=== PATIENT | female | born 1960 | race Caucasian/White ===

== ENCOUNTER → 2020-02-12 10:52 | Outpatient (CLI) | payer BC, SELFPAY ==
--- NOTE | ~2020-02-12 | MM_ITS ---
EXAMINATION: MM scrn silver implant BI w lizy HISTORY: Screening mammogram TECHNIQUE: Craniocaudal and mediolateral oblique 3-D tomosynthesis images with implant displacement a nd synthetic 2-D images were generated. Craniocaudal and mediolateral oblique views of the breasts wi thout implant displacement were obtained using full field digital mammography. CAD analysis was submi tted and interpreted. COMPARISON: 11/30/2018, 11/24/2017, 09/28/2016 BREAST PARENCHYMAL COMPOSITION: There are scattered areas of fibroglandular density. FINDINGS: There is no evidence of suspicious mass, calcification, or architectural distortion to sugg est malignancy in either breast. There has been no suspicious interval change. IMPRESSION: 1. No mammographic evidence of malignancy. 2. Recommend routine screening mammography in one year. BI-RADS Category 1: Negative Reviewed, dictated and finalized at location A.
== END ==
PROVIDERS: Visit Provider Nurse Practitioner
DX: Z12.31 Encounter for screening mammogram for malignant neoplasm of breast (principal)
CPT/HCPCS: 77063; 77067

== ENCOUNTER → 2021-02-15 10:19 | Outpatient (CLI) | payer BC, SELFPAY ==
--- NOTE | ~2021-02-15 | MM_ITS ---
EXAMINATION: MM scrn silver implant BI w lizy HISTORY: Screening mammogram TECHNIQUE: Craniocaudal and mediolateral oblique 3-D tomosynthesis images with implant displacement a nd synthetic 2-D images were generated. Craniocaudal and mediolateral oblique views of the breasts wi thout implant displacement were obtained using full field digital mammography. CAD analysis was submi tted and interpreted. COMPARISON: 02/12/2020, 11/30/2018, 11/24/2017 BREAST PARENCHYMAL COMPOSITION: There are scattered areas of fibroglandular density. FINDINGS: There is no evidence of suspicious mass, calcification, or architectural distortion to sugg est malignancy in either breast. There has been no suspicious interval change. IMPRESSION: 1. No mammographic evidence of malignancy. 2. Recommend routine screening mammography in one year. BI-RADS Category 1: Negative Reviewed, dictated and finalized at location A.
== END ==
PROVIDERS: PCP Physician Assistant; Visit Provider Nurse Practitioner
DX: Z12.31 Encounter for screening mammogram for malignant neoplasm of breast (principal)
CPT/HCPCS: 77063; 77067

== ENCOUNTER → 2021-12-14 16:09 | Outpatient (CLI) | payer BC, SELFPAY ==
--- NOTE | ~2021-12-14 | MR_ITS ---
EXAMINATION: MR ankle RT wo con DATE: 12/14/2021 17:04 INDICATION: Plantar fascial fibromatosis TECHNIQUE: Magnetic resonance imaging (MRI) of the right ankle was performed without intravenous cont rast. Sequences included sagittal, coronal, and axial proton-density weighted fast spin echo without and with fat saturation. COMPARISON: None. FINDINGS: Medial ankle ligaments: Deep and superficial deltoid ligaments as well as the spring ligament are normal. Lateral ankle ligaments: The anterior and posterior inferior tibiofibular ligaments are normal. The anterior talofibular, calc aneofibular and posterior talofibular ligaments are normal. Tendons: Achilles tendon is normal. The peroneus longus and brevis tendons are normal. There is localized mild synovitis along the peroneus longus tendon at the level of the peroneal groove at the plantar aspect of the cuboid where there is associated mild marrow edema. The tibialis anterior and extensor halluc is longus and extensor digitorum longus tendons are normal. The tibialis posterior, flexor digitorum longus and flexor hallucis longus tendons are normal. Plantar fascia: Small plantar calcaneal spur. There is thickening and increased signal of the proximal plantar aponeu rosis with mild surrounding soft tissue edema and mild marrow edema at the calcaneal origin consisten t with acute on chronic plantar fasciitis. The more distal plantar aponeurosis appears normal with no regions of cortical thickening to suggest fibromatosis. Bones/other: Bone alignment is normal. No fracture or pathologic marrow replacing process. Joint spaces are relat ively preserved. Fluid: Physiologic amount of fluid in the joint spaces. No other abnormal fluid collections. IMPRESSION: 1. Moderate acute on chronic plantar fasciitis. 2. Cuboid marge lesion with marrow edema at the peroneal groove at the plantar aspect of the cuboid with associated focal tenosynovitis along the normal peroneus longus tendon. Both this and the planta r fasciitis could be related to overuse however also raises the possibility of an inflammatory enthes itis/arthritis such as in the setting of rheumatoid arthritis or spondyloarthritis. Reviewed, dictated and finalized at location A. IMPRESSION: 1. Moderate acute on chronic plantar fasciitis. 2. Cuboid marge lesion with marrow edema at the peroneal groove at the plantar aspect of the cuboid with associated focal tenosynovitis along the normal sobeida neus longus tendon. Both this and the plantar fasciitis could be related to ove ruse however also raises the possibility of an inflammatory enthesitis/arthriti s such as in the setting of rheumatoid arthritis or spondyloarthritis.
== END ==
PROVIDERS: PCP Physician Assistant; Visit Provider Podiatrist Foot & Ankle Surgery
DX: M72.2 Plantar fascial fibromatosis (principal); M76.61 Achilles tendinitis, right leg
CPT/HCPCS: 73721

== ENCOUNTER → 2022-07-25 10:21 | Outpatient (CLI) | payer BC, SELFPAY ==
--- NOTE | ~2022-07-25 | MM_ITS ---
EXAMINATION: MM screening silver BI w liyz HISTORY: Screening mammogram TECHNIQUE: Craniocaudal and mediolateral oblique 3-D tomosynthesis images were obtained and synthetic 2-D images were generated. CAD analysis was submitted and interpreted. COMPARISON: 02/2021, 02/12/2020, 11/30/2018 bilateral implant screening mammogram examinations BREAST PARENCHYMAL COMPOSITION: There are scattered areas of fibroglandular density. FINDINGS: Interval removal of bilateral breast implants since last mammogram of 02/2021. There is no evidence of suspicious mass, calcification, or architectural distortion to suggest malignancy in eit her breast. There has been no suspicious interval change. IMPRESSION: 1. No mammographic evidence of malignancy. 2. Recommend routine screening mammography in one year. BI-RADS Category 1: Negative Reviewed, dictated and finalized at location A.
== END ==
PROVIDERS: PCP Physician Assistant; Visit Provider Nurse Practitioner
DX: Z12.31 Encounter for screening mammogram for malignant neoplasm of breast (principal)
CPT/HCPCS: 77063; 77067

== ENCOUNTER → 2023-01-02 11:00 | Outpatient (CLI) | payer BC, SELFPAY ==
--- NOTE | ~2023-01-02 | DEXA_ITS ---
Bone Density Report Name: MALATHI JACOBSON Age: 62 Sex: Female Ethnicity: White Date of : 1960 Indication: postmenopausal; screening for osteoporosis; rheumatoid arthritis; Referring Provider: [place], Gissell Study: Bone densitometry was performed. Exam Date: January 02, 2023 Accession number: [id number] Bone Density: Region BMD T-score Z-score Classification AP Spine (L1-L4) 1.063 0.1 1.7 Normal Femoral Neck (Left) 0.642 -1.9 -0.5 Osteopenia Total Hip (Left) 0.847 -0.8 0.3 Normal Femoral Neck (Right) 0.716 -1.2 0.2 Osteopenia Total Hip (Right) 0.857 -0.7 0.4 Normal Total Hip Mean 0.852 -0.8 0.4 Normal World Health Organization criteria for BMD impression classify patients as: Normal (T-score at or above -1.0), Osteopenia (T-score between -1.0 and -2.5), or Osteoporosis (T-score at or below -2.5). 10-year Fracture Risk(1): Major Osteoporotic Fracture 12% Hip Fracture 1.6% Reported Risk Factors: [place] (), Neck BMD=0.642, BMI=27.0, rheumatoid arthritis (1) FRAX(R) Version 3.08. Fracture probability calculated for an untreated patient. Fracture probability may be lower if the patient has received treatment. Clinical Information Provided by Patient: Has rheumatoid arthritis Has used the following medications: Vitamin D Patient maximum height was 64.75 Menopause Age: 55 Does not regularly consume dairy products Drinks caffeinated beverages Onset of menses at age 16 Number of children 2 Impression: The patient has low bone mass, based on the Left Femoral Neck T-score. The patient has an estimated ten-year risk of hip fracture of 1.6% and an estimated ten-year risk of major fracture of 12%, based on the WHO FRAX algorithm. Discussion: BONE DENSITY IS LOW AT ONE OR MORE SKELETAL SITES. This patient's lowest T-score is low at one or more skeletal sites. It meets the World Health Organization's (WHO) criteria for ?low bone mass? (T-score between -1.0 and -2.5). The patient's 10-year risk of fracture as calculated by FRAX is less than the threshold where pharmacological therapy is recommended by the National Osteoporosis Foundation (NOF). However, all treatment decisions require clinical judgment and consideration of individual patient factors, including patient preferences, comorbidities, previous drug use, risk factors not captured in the FRAX model (e.g., frailty, falls, vitamin D deficiency, increased bone turnover, interval significant decline in bone density) and possible under or overestimation of fracture risk by FRAX. The patient should follow a healthful lifestyle (good nutrition with adequate calcium and vitamin D, and appropriate weight-bearing exercise). Follow-Up: Consider repeating this study in 2 to 3 years to reassess this patient's status, or sooner if there
== END ==
PROVIDERS: PCP Physician Assistant; Visit Provider Nurse Practitioner
DX: Z13.820 Encounter for screening for osteoporosis (principal); Z78.0 Asymptomatic menopausal state; M85.852 Other specified disorders of bone density and structure, left thigh; M85.851 Other specified disorders of bone density and structure, right thigh
CPT/HCPCS: 77080

== ENCOUNTER 2023-06-23 20:14 | Emergency (ER) | payer BC, SELFPAY ==
[2023-06-23 20:58] VITALS: BP 121/59; PULSE 84; RESP 16; TEMP 36.9; O2SAT 100
--- NOTE | 2023-06-23 21:02 | ECG_ITS ---
Measurements Intervals [place] Rate: 72 P: 25 NV: 154 QRS: 20 QRSD: 82 T: 34 QT: 392 QTc: 429 Interpretive Statements SINUS RHYTHM NORMAL ECG NO PREVIOUS ECG AVAILABLE FOR COMPARISON Electronically Signed On 06-24-2023 8:03:51 [employer] MIXING MACHINE OPERATOR by Dannie Escamilla M.D.
[2023-06-23 21:35] LABS: Basophils Percent Auto 0.4 % (0.2-1.2); Eosinophils Absolute Auto 0.1 K/mm3 (0-0.3); Eosinophils Percent Auto 0.7 % (0-4.4); Hematocrit 40.2 % (37.0-47.0); Hemoglobin 13.3 g/dL (12.0-15.0); Immature Granulocyte Absolute 0.03 K/mm3 (0.00-0.031); Immature Granulocyte Percent A 0.4 % (0-0.5); Lymphocytes Absolute Auto 1.19 K/mm3 (0.9-3.2); Mean Corpuscular HGB Conc 33.1 g/dl (32-36); Mean Corpuscular Hemoglobin 30.4 pg (26-34); Mean Platelet Volume 9.7 fl (7.4-10.4); Monocytes Absolute Auto 0.5 K/mm3 (0.1-0.6); Monocytes Percent Auto 6.6 % (2.6-8.5); Neutrophils Absolute Auto 5.6 K/mm3 (1.3-6.7); Neutrophils Percent Auto 75.9 % (45.5-73.1); Platelet Count Result 233 k/mm3 (150-375); Red Blood Count 4.37 M/mm3 (4.2-5.4); Red Cell Distribution Width 12.9 % (11.5-14.5); White Blood Count 7.4 K/mm3 (4.5-10.0)
[2023-06-23 22:21] LABS: Alanine Aminotransferase 55 U/L (6-35); Albumin Level 4.5 g/dL (3.5-5.1); Alkaline Phosphatase 76 U/L (38-126); Anion Gap 8 mmol/L (8-16); Aspartate Amino Transferase 42 U/L (14-36); Bilirubin,Total 0.5 mg/dL (0.2-1.3); Blood Urea Nitrogen 25 mg/dL (7-17); Calcium 9.5 mg/dL (8.4-10.2); Carbon Dioxide 27 mmol/L (22-30); Chloride 102 mmol/L (98-107); Estimated CRCL calculation 45 ml/min; Estimated Glomerular Filt Rate 56; Glucose 118 mg/dL (65-110); Potassium 3.7 mmol/L (3.4-5.0); Sodium 137 mmol/L (137-145)
== END 2023-06-23 22:53 | disposition left against medical advice (07) ==
PROVIDERS: Emergency Provider Emergency Medicine; PCP Physician Assistant
DX: R55 Syncope and collapse (principal)
CPT/HCPCS: 36415; 80053; 85025; 93005; 99199

== ENCOUNTER 2023-07-28 10:04 | Outpatient (CLI) | payer BC, SELFPAY ==
--- NOTE | ~2023-07-28 | MM_ITS ---
EXAMINATION: MM screening silver BI w lizy HISTORY: Screening mammogram TECHNIQUE: Craniocaudal and mediolateral oblique 3-D tomosynthesis images were obtained and synthetic 2-D images were generated. CAD analysis was submitted and interpreted. COMPARISON: 07/25/2022 bilateral screening mammogram 02/2021 bilateral implant screening mammogram BREAST PARENCHYMAL COMPOSITION: The breasts are heterogeneously dense, which may obscure small masses . FINDINGS: Asymmetric 2 mm mass is noted in the posterior lower outer left breast. Diagnostic left silver mogram is recommended, with ultrasound if required. Otherwise there is no evidence of suspicious mass, calcification, or architectural distortion to sugg est malignancy in either breast. There has been no other suspicious interval change. IMPRESSION: 1. Asymmetric 2 mm mass in posterior lower outer left breast 2. Diagnostic left mammogram is recommended, with ultrasound if required BI-RADS Category 0: Incomplete: Needs additional imaging evaluation. Reviewed, dictated and finalized at location A.
== END 2023-07-28 10:05 ==
LOC: MICIMG 10:06
PROVIDERS: PCP Physician Assistant; Visit Provider Nurse Practitioner
DX: Z12.31 Encounter for screening mammogram for malignant neoplasm of breast (principal); R92.8 Other abnormal and inconclusive findings on diagnostic imaging of breast
CPT/HCPCS: 77063; 77067

== ENCOUNTER 2023-08-28 14:59 | Outpatient (CLI) | payer BC, SELFPAY ==
--- NOTE | ~2023-08-28 | MR_ITS ---
EXAMINATION: MR brain/brain stem wo/w con DATE: 08/28/2023 15:39 INDICATION: Syncope. TECHNIQUE: Magnetic resonance imaging (MRI) of the brain and brainstem was performed without and with 14 mL MultiHance intravenous contrast. COMPARISON: None. FINDINGS: There is no intracranial hemorrhage, acute infarction, or abnormal intracranial mass lesion . There are scattered areas of nonspecific increased T2-weighted signal intensity in the cerebral whi te matter, which is within normal limits for the patient's age. The ventricles are normal in size. Th e paranasal sinuses are clear. The orbits are normal. The mastoid air cells are normal. IMPRESSION: 1. Normal brain. Reviewed, dictated and finalized at location E. IMPRESSION: 1. Normal brain.
== END 2023-08-28 15:00 ==
LOC: MICIMG 15:00
PROVIDERS: PCP Physician Assistant; Visit Provider Physician Assistant
DX: R55 Syncope and collapse (principal)
CPT/HCPCS: 70553

== ENCOUNTER 2023-09-06 09:10 | Outpatient (CLI) | payer BC, SELFPAY ==
--- NOTE | ~2023-09-06 | US_ITS ---
EXAMINATION: US carotid duplex BI DATE: 09/06/2023 09:49 INDICATION: Syncope TECHNIQUE: Grayscale, color Doppler, and pulsed Doppler images of the cervical carotid arteries were obtained. The degree of vessel stenosis is placed in one of the following categories: normal, <50%, 5 0-69%, >=70% but less than near-occlusion, near-occlusion, or total occlusion. Note that percent sten osis relative to normal distal artery lumen diameter is indirectly measured from velocity measurement s as described by Martinez, et al. Radiology 2003; 229:340-346. Notes: Normal: Peak systolic velocity <125 centimeters/sec and no plaque <50%. Peak systolic velocity <125 ( EDV <40; ICA/CCA PSV ratio <2.0; used these factors only a tandem lesions or low cardiac output or co ntralateral disease) 50-69 %: PSV 125-230 (EDV 40-100; ratio 2-4) >= 70% but less than near occlusion: PSV greater than 230 (EDV > 100; ratio> 4.0) Near Occlusion: PSV that is variable; markedly narrowed lumen Occlusion: Absent flow on color/spectral Doppler and no lumen on arita scale. COMPARISON: None. FINDINGS: RIGHT: The right common carotid artery (CCA) peak systolic velocity (PSV) is 71 cm/s. The right internal car otid artery (ICA) PSV is 66 cm/s. The right ICA end-diastolic velocity (EDV) is 28 cm/s. The right IC A/CCA PSV ratio is 0.9. The external carotid artery (ECA) PSV is 40 cm/s. There is antegrade flow in the right vertebral artery. LEFT: The left CCA PSV is 55 cm/s. The left ICA PSV is 76 cm/s. The left ICA EDV is 37 cm/s. The left ICA/C CA PSV ratio is 1.4. The ECA PSV is 69 cm/s. There is antegrade flow in the left vertebral artery. IMPRESSION: 1. Less than 50% stenosis in the right internal carotid artery by sonographic criteria. 2. Less than 50% stenosis in the left internal carotid artery by sonographic criteria. Reviewed, dictated and finalized at location B. IMPRESSION: 1. Less than 50% stenosis in the right internal carotid artery by sonographic roger orourke. 2. Less than 50% stenosis in the left internal carotid artery by sonographic justin tyler.
== END 2023-09-06 09:11 ==
LOC: MICIMG 09:17
PROVIDERS: PCP Physician Assistant; Visit Provider Physician Assistant
DX: I65.23 Occlusion and stenosis of bilateral carotid arteries (principal); R55 Syncope and collapse
CPT/HCPCS: 93880

== ENCOUNTER 2023-09-06 09:23 | Outpatient (CLI) | payer BC, SELFPAY ==
--- NOTE | ~2023-09-06 | MM_ITS ---
EXAMINATION: MM diagnostic silver LT w lizy HISTORY: Asymmetric 2 mm mass in posterior lower outer left breast reported on 07/28/2023 screening ma mmogram TECHNIQUE: Additional 3-D tomosynthesis images of the left breast were performed and synthetic 2-D im ages were generated. CAD analysis was submitted and interpreted. COMPARISON: 07/28/2023 bilateral screening mammogram FINDINGS: The 2 mm soft tissue opacity noted posteriorly in the lower left breast on screening MLO vi ew of 07/28/2023 is not detected on these supplemental additional views. IMPRESSION: 1. No mammographic evidence of malignancy 2. Routine annual mammographic screening is recommended BI-RADS Category 1: Negative Reviewed, dictated and finalized at location A.
== END 2023-09-06 09:24 ==
LOC: MICIMG 09:24
PROVIDERS: PCP Obstetrics & Gynecology Gynecology; Visit Provider Obstetrics & Gynecology Gynecology
DX: R92.8 Other abnormal and inconclusive findings on diagnostic imaging of breast (principal)
CPT/HCPCS: 77061; 77065; G0279

== ENCOUNTER 2023-09-08 06:37 | Outpatient (CLI) | payer BC, SELFPAY ==
--- NOTE | 2023-09-08 | ECHO_ITS ---
Patient Info Name: Supriya Lan Age: 63 years : 1960 Gender: Female Ht: 64 in Wt: 148 lbs BSA: 1.75 m2 HR: 54 bpm BP: 111 / 75 mmHg Technical Quality: Fair Exam Date: 09/08/2023 7:32 AM Exam Location: Echo Lab Patient Status: Outpatient Admit Date: 09/08/2023 Staff Ordering Physician: JaisonEliana PA-C Meat Press Operator: Pj Francis RDCS Attending Provider: MedardoEliana PA-C Exam Type: CA echo doppler color flow Study Info Indications R55 - Syncope and collapse Complete two-dimensional, color flow and Doppler transthoracic echocardiogram is performed. Summary 1. Complete two-dimensional, color flow and Doppler transthoracic echocardiogram is performed. 2. Left ventricular chamber dimension is normal. 3. Left ventricular systolic function is normal, estimated at 60-65%. 4. The left ventricular diastolic function is abnormal. 5. E/e' 10 is mildly elevated. 6. There is trace mitral valve regurgitation. 7. There is trace tricuspid valve regurgitation. 8. No pulmonary hypertension, estimated pulmonary arterial systolic pressure is 25 mmHg. 9. There is trace pulmonic regurgitation. Left Ventricle E/e' 10 is mildly elevated. Left ventricular chamber dimension is normal. Left ventricular systolic function is normal, estimated at 60-65%. The left ventricular diastolic function is abnormal. Right Ventricle Right ventricular chamber dimension is normal. Right ventricular systolic function is normal. Left Atria Left atrial chamber dimension is normal. Right Atria Right atrial chamber dimension is normal. Aortic Valve The aortic valve is trileaflet. There is no aortic valve stenosis. There is no aortic valve regurgitation. Pulmonic Valve There is trace pulmonic regurgitation. Mitral Valve There is no mitral valve stenosis. There is trace mitral valve regurgitation. Tricuspid Valve There is trace tricuspid valve regurgitation. No pulmonary hypertension, estimated pulmonary arterial systolic pressure is 25 mmHg. Pericardium/Pleural There is no pericardial effusion. Inferior Vena Cava Normal inferior vena cava with >50% collapse upon inspiration consistent with normal right atrial pressure, 5 mmHg. Aorta The aortic root size at the sinus of Valsalva is normal. Left Ventricular Outflow Tract Name Value Normal LVOT 2D LVOT Diameter 1.9 cm LVOT Doppler LVOT Peak Gradient 5 mmHg LVOT Mean Gradient 2 mmHg LVOT VTI 25 cm LVOT VTI/AV VTI Ratio 0.9 LVOT Stroke Volume 68 ml LVOT CO 3.9 l/min LVOT CI 2.2 l/min/m2 Pulmonic Valve Name Value Normal RVOT Doppler RVOT Peak Gradient 2 mmHg PV Doppler PV Peak Gradie
--- NOTE | 2023-09-09 17:07 | WPDNEUROLOGY ---
Neurology EEG Report General Information Date of Study: 09/08/23 TEST Electroencephalogram DIAGNOSIS syncope and collapse CONDITION OF RECORDING neurology lab EEG NUMBER [id number] CLINICAL HISTORY The patient is a 66 years old with history of episodes of loss of consciousness. List of current medications are not available. EEG DESCRIPTION During wakefulness the background activity consists of posterior dominant alpha rhythm at approximately 9 hertz the patient 1535 microvolts which appears more delete formed and reactive to eye opening. Anteriorly low amplitude mixed frequency activity was seen. During drowsiness attenuation of background activity is seen. Patient did not progress to stage 2 sleep. Hyperventilation was not performed. Photic session was performed during which no significant abnormal background changes were seen. No appreciable driving response was noted. IMPRESSION This is a normal EEG obtained during awake and drowsy states.
--- NOTE | 2023-09-09 17:15 | WPDNEUROLOGY ---
Neurology EEG Report General Information Date of Study: 09/08/23 TEST Electroencephalogram DIAGNOSIS cerebral infarction CONDITION OF RECORDING neurodiagnostic lab EEG NUMBER [id number] CLINICAL HISTORY the patient is 57 years old with history of an episode in which the patient unable to walk and also had slurring of speech for 2 days which subsequently cleared up. This happened a few years ago. EEG DESCRIPTION At the beginning of the recording the patient noted to be drowsy. The background activity consists of predominant theta activity at 7 hertz the amplitude of 15-30 microvolts. The patient appears to be drowsy through most of the recording. hyperventilation was not performed. Photic stimulation was for which no significant abnormal background changes were seen. Stage 2 sleep was recorded during which sleep spindles. During periods of brief self arousal the posterior down rhythm reaches in the range of approximately 8 hertz with remains poorly defined IMPRESSION This is an essentially normal EEG obtained during drowsy and sleep states. No focal or paroxysmal abnormalities were noted.
== END 2023-09-08 06:38 | disposition home or self-care (01) ==
PROVIDERS: PCP Physician Assistant; Visit Provider Physician Assistant
DX: R55 Syncope and collapse (principal)
CPT/HCPCS: 93306; 95816

== ENCOUNTER 2024-09-06 09:19 | Outpatient (CLI) | payer BC, SELFPAY ==
--- NOTE | ~2024-09-06 | XR_ITS ---
Right wrist Technique: PA and lateral views were obtained. Clinical History: Rheumatoid arthritis Findings: No acute fracture or dislocation is seen. Osseous alignment is anatomic. Joint spaces are p reserved. Soft tissues are unremarkable. Impression: Unremarkable right wrist radiographs. Reviewed, dictated and finalized at location M. Impression: Unremarkable right wrist radiographs.
--- NOTE | ~2024-09-06 | XR_ITS ---
AP and oblique views of the SI joints CLINICAL HISTORY: Rheumatoid arthritis FINDINGS: There is mild degenerative change of the SI joints. No erosive change identified. No sclero sis. Bilateral hip joints are intact. Soft tissues are unremarkable. 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 No erosive arthropathy evident. Reviewed, dictated and finalized at location .
--- NOTE | ~2024-09-06 | XR_ITS ---
Right foot Technique: AP, oblique, and lateral views were obtained. Clinical History: Rheumatoid arthritis Findings: No acute fracture or dislocation is seen. Osseous alignment is anatomic. Joint spaces are p reserved without erosive or degenerative change. Soft tissues are unremarkable. Impression: Unremarkable right foot radiographs. Reviewed, dictated and finalized at [facility]. Impression: Unremarkable right foot radiographs.
--- NOTE | ~2024-09-06 | XR_ITS ---
Lumbosacral Spine: AP and lateral views Clinical History: Pain Findings: Mild levoscoliosis noted. The vertebral bodies and posterior elements are intact. The int ervertebral disc spaces are preserved. There is severe facet arthropathy from L3 through S1. The sacr oiliac joints are normally outlined. Impression: Facet arthropathy at the lower lumbar spine, as above. Reviewed, dictated and finalized at location . Impression: Facet arthropathy at the lower lumbar spine, as above.
--- NOTE | ~2024-09-06 | XR_ITS ---
Right Hand Technique: PA and lateral views were obtained. Clinical History: Rheumatoid arthritis Findings: No acute fracture or dislocation is seen. Osseous alignment is anatomic. Joint spaces are p reserved. Soft tissues are unremarkable. Impression: Unremarkable right hand. Reviewed, dictated and finalized at location M. Impression: Unremarkable right hand.
--- NOTE | ~2024-09-06 | XR_ITS ---
Left wrist Technique: PA and lateral views were obtained. Clinical History: Rheumatoid arthritis Findings: No acute fracture or dislocation is seen. Osseous alignment is anatomic. Joint spaces are p reserved. Soft tissues are unremarkable. Impression: Unremarkable left wrist radiographs. Reviewed, dictated and finalized at location M. Impression: Unremarkable left wrist radiographs.
--- NOTE | ~2024-09-06 | XR_ITS ---
Left Hand Technique: PA and lateral views were obtained. Clinical History: Rheumatoid arthritis Findings: No acute fracture or dislocation is seen. Osseous alignment is anatomic. Joint spaces are p reserved. Soft tissues are unremarkable. Impression: Unremarkable left hand. Reviewed, dictated and finalized at location M. Impression: Unremarkable left hand.
--- NOTE | ~2024-09-06 | XR_ITS ---
Left ankle Technique: AP and lateral views were obtained. Clinical History: Rheumatoid arthritis Findings: No acute fracture or dislocation is seen. Osseous alignment is anatomic. Ankle mortise and other visualized joint spaces are preserved. Soft tissues are otherwise unremarkable. Impression: Unremarkable left ankle. Reviewed, dictated and finalized at location . Impression: Unremarkable left ankle.
--- NOTE | ~2024-09-06 | XR_ITS ---
Right ankle Technique: AP and lateral views were obtained. Clinical History: Rheumatoid arthritis Findings: No acute fracture or dislocation is seen. Osseous alignment is anatomic. Ankle mortise and other visualized joint spaces are preserved. Soft tissues are otherwise unremarkable. Impression: Unremarkable right ankle. Reviewed, dictated and finalized at location . Impression: Unremarkable right ankle.
--- NOTE | ~2024-09-06 | XR_ITS ---
Left foot Technique: AP, oblique, and lateral views were obtained. Clinical History: Rheumatoid arthritis Findings: No acute fracture or dislocation is seen. Osseous alignment is anatomic. Joint spaces are p reserved without erosive or degenerative change. Soft tissues are unremarkable. Impression: Unremarkable left foot radiographs. Reviewed, dictated and finalized at [facility]. Impression: Unremarkable left foot radiographs.
== END 2024-09-06 09:20 | disposition home or self-care (01) ==
LOC: MICIMG 09:22
PROVIDERS: PCP Physician Assistant; Visit Provider Nurse Practitioner Family
DX: M54.9 Dorsalgia, unspecified (principal); R53.81 Other malaise; M25.50 Pain in unspecified joint; M79.10 Myalgia, unspecified site; M06.09 Rheumatoid arthritis without rheumatoid factor, multiple sites; M53.3 Sacrococcygeal disorders, not elsewhere classified
CPT/HCPCS: 72100; 72202; 73100; 73120; 73600; 73630

== ENCOUNTER 2024-10-25 13:38 | Outpatient (CLI) | payer BC, SELFPAY ==
--- NOTE | ~2024-10-25 | MR_ITS ---
MRI of the pelvis CLINICAL HISTORY: Chronic SI joint pain TECHNIQUE: Sagittal proton-density fat-sat images, coronal T1-weighted, T2-weighted, and T2 fat-sat i mages, and axial T1-weighted and T2 fat-sat images were performed. Following intravenous administrati on of 14 cc MultiHance gadolinium, T1-weighted fat-sat imaging was performed in the axial and coronal planes. FINDINGS: No fracture or dislocation seen. SI joints are intact. No bone marrow edema or erosive arth ropathy evident. No joint effusion. No degenerative change evident. Visualized musculature about the sacrum and visualized pelvis is unremarkable. No muscle atrophy or e nati identified. No peripheral soft tissue mass or fluid collection seen. Bilateral ovarian cysts are noted, partially imaged, measuring 4.0 cm the left ovary, and 2.1 cm on t he right ovary. IMPRESSION: No significant abnormality of the SI joints/sacrum. 4.0 cm left ovarian cyst, and 2.1 cm right ovarian cyst. Reviewed, dictated and finalized at [facility].
== END 2024-10-25 13:39 | disposition home or self-care (01) ==
LOC: MICIMG 13:39
PROVIDERS: PCP Physician Assistant; Visit Provider Nurse Practitioner Family
DX: M53.3 Sacrococcygeal disorders, not elsewhere classified (principal); M06.09 Rheumatoid arthritis without rheumatoid factor, multiple sites; N83.201 Unspecified ovarian cyst, right side; N83.202 Unspecified ovarian cyst, left side
CPT/HCPCS: 72197

== ENCOUNTER 2024-11-18 11:13 | Outpatient (CLI) | payer BC, SELFPAY ==
--- NOTE | ~2024-11-18 | US_ITS ---
EXAMINATION: US pelvic complete INDICATION: Ovarian cysts. Comparison:MRI of the pelvis dated 10/25/2024 TECHNIQUE: Multiple transabdominal and endovaginal sonographic images of the pelvis performed. FINDINGS: The uterus measures 6 x 2.7 x 4.2 cm. There is a small fibroid posteriorly measuring 2.1 cm . The endometrial complex measures 2 mm. The right ovary measures 2.9 x 2.7 x 2.4 cm and the left ovary measures 4.9 x 5.4 x 4 cm. There are b ilateral ovarian cyst measuring up to 2.9 cm on the right hand 4.7 cm on the left. There are small fo llicles in each ovary. Normal doppler signal in both ovaries. There is no free fluid in the pelvis. There are no abnormal masses seen on either side. IMPRESSION: 1. Simple bilateral ovarian cysts, largest in the left ovary measuring 4.7 cm. 2: Small posterior uterine fibroid measuring 2.1 cm. Reviewed, dictated and finalized at location A.
== END 2024-11-18 11:14 | disposition home or self-care (01) ==
LOC: MICIMG 11:15
PROVIDERS: PCP Physician Assistant; Visit Provider Nurse Practitioner
DX: N83.201 Unspecified ovarian cyst, right side (principal); N83.202 Unspecified ovarian cyst, left side; D25.9 Leiomyoma of uterus, unspecified
CPT/HCPCS: 76856

== ENCOUNTER 2024-11-28 15:33 | Outpatient (CLI) | payer BC, SELFPAY ==
--- NOTE | ~2024-11-28 | MM_ITS ---
EXAMINATION: MM screening silver BI w lizy HISTORY: Screening TECHNIQUE: Craniocaudal and mediolateral oblique 3-D tomosynthesis images were obtained and synthetic 2-D images were generated. CAD analysis was submitted and interpreted. COMPARISON: Comparison to multiple prior studies sequentially, with oldest reviewed study dated 11/30. BREAST PARENCHYMAL COMPOSITION: Dense: The breasts are heterogeneously dense, which may obscure small masses FINDINGS: There is no evidence of suspicious mass, calcification, or architectural distortion to sugg est malignancy in either breast. There has been no suspicious interval change. IMPRESSION: 1. No mammographic evidence of malignancy. 2. Recommend routine screening mammography in one year. BI-RADS Category 1: Negative Reviewed, dictated and finalized at location B.
== END 2024-11-28 15:34 | disposition home or self-care (01) ==
PROVIDERS: PCP Physician Assistant; Visit Provider Nurse Practitioner
DX: Z12.31 Encounter for screening mammogram for malignant neoplasm of breast (principal)
CPT/HCPCS: 77063; 77067

== ENCOUNTER 2025-03-03 11:04 | Outpatient (CLI) | payer BC, SELFPAY ==
--- NOTE | ~2025-03-03 | US_ITS ---
EXAMINATION: US pelvic complete w TV, 03/03/2025 11:07 CDT HISTORY: Unspecified ovarian cyst, right and left side Comparison: None Technique: Farias-scale and color Doppler images were obtained. Findings: Uterus: Uterus 5.3 x 2.3 x 3.8 cm, retroverted. Fundal fibroid 1.6 x 1.6 cm. . Endometrium 2 mm. Right Ovary:Right ovary 3.4 x 2 x 3 cm, no adnexal mass, normal flow, simple appearing cystic lesion 2 x 1.6 x 2.6 cm. Left Ovary: Left ovary 5.6 x 3.8 x 4.8 cm, no adnexal mass, normal flow, cystic lesion 3.9 x 4 cm. Free Fluid: None Impression: Bilateral cystic lesions in this postmenopausal patient. Contrast-enhanced MRI is recommended. Cystic ovarian neoplasm is not excluded Reviewed, dictated and finalized at location P. Impression: Bilateral cystic lesions in this postmenopausal patient. Contrast-enhanced MRI is recommended. Cystic ovarian neoplasm is not excluded
== END 2025-03-03 11:05 | disposition home or self-care (01) ==
LOC: MICIMG 11:05
PROVIDERS: PCP Physician Assistant; Visit Provider Obstetrics & Gynecology Gynecology
DX: N83.201 Unspecified ovarian cyst, right side (principal); N83.202 Unspecified ovarian cyst, left side
CPT/HCPCS: 76830; 76856